=== PATIENT | female | born 1985 ===

== ENCOUNTER 2019-11-07 20:42 | Inpatient (IN) | payer MEDICAID, OTHER ==
[2019-11-07] MEDS ORDERED: TERBUTALINE 1 MG/1 ML INJ IVP PRN (20:55)
[2019-11-07] MEDS ORDERED: BUTORPHANOL 2 MG/1 ML INJ IV PRN (20:55)
[2019-11-07] MEDS ORDERED: TERBUTALINE 1 MG/1 ML INJ SUB-Q PRN (20:55)
[2019-11-07] MEDS ORDERED: fentaNYL 100 MCG/2 ML INJ IV PRN (20:55)
[2019-11-07] MEDS ORDERED: ONDANSETRON 4 MG/2 ML INJ IV PRN (20:55)
[2019-11-07] MEDS ORDERED: MINERAL OIL 30 ML ORAL LIQD PO PRN (20:55)
[2019-11-07] MEDS ORDERED: AMPICILLIN/NS 2 GM/100 ML 2 GM/100 ML BAG IV ONE (20:55)
[2019-11-07] MEDS ORDERED: ePHEDrine SULFATE 50 MG/1 ML INJ IV PRN (20:55)
[2019-11-07] MEDS ORDERED: OXYTOCIN 20 UNIT/1000ML DRIP 20 UNITS/1,000 ML BAG IV SCH (21:00)
--- NOTE | 2019-11-07 21:04 | History and Physical Report ---
History of Present Illness Date of examination: 11/07/19 Date of admission: 11/07/19 20:42 Chief complaint: IOL secondary to post-date History of present illness: 34 yo, @ 41.1 weeks, initiated care with [facility] at 7.3 wks gestation. Her has been complicated by positive GBS status. She reports to [facility] for IOL secondary to post-date . She reports +FM. Denies any LOF or VB. Labs: O+, antibody negative; PAP normal; rubella immune; VDRL non-reactive; HBsAg negative; HIV negative; platelets 332k; GC/Chlamydia negative; MSAFP/Multiple markers negative; 1hr gtt - 133; GBS positive. Past History Past Medical History: no pertinent history Past Surgical History: no surgical history Family/Genetic History: hypertension (mother) Social history: , lives with family, full code. denies: smoking, alcohol abuse, prescription drug abuse, IV drug use - Obstetrical History Expected Date of Delivery: 10/30/19 Actual Gestation: 41 Week(s) 1 Day(s) : 2 Para: 1 Hx # Term Pregnancies: 1 Number of Pregnancies: 0 Spontaneous Abortions: 0 Induced : 0 Number of Living Children: 1 #1 Infant Gender: Male year: 2[age][birth year] Birthweight: 3.75 kg Method of Delivery: Vaginal Complications: none Medications and Allergies Allergies Allergy/AdvReac Type Severity Reaction Status Date / Time No Known Allergies Allergy Verified 11/07/19 21:10 Active Meds: Active Medications Butorphanol Tartrate (Stadol) 2 mg IV Q2H PRN PRN Reason: Pain , Severe (7-10) Ephedrine Sulfate (Ephedrine Sulfate) 10 mg IV Q2M PRN PRN Reason: Hypotension Fentanyl (Sublimaze) 100 mcg IV Q2H PRN PRN Reason: Pain,Severe (7-10) LABOR PAIN Oxytocin/Sodium Chloride (Pitocin/Ns 20 Unit/1000ml Drip) 20 units in 1,000 mls @ 125 mls/hr IV DIRECT NANDO Lactated Ringer's (Lactated Ringers) 1,000 mls @ 125 mls/hr IV DIRECT NANDO Ampicillin Sodium (Ampicillin/Ns 2 Gm/100 Ml) 2 gm in 100 mls @ 100 mls/hr IV ONCE ONE; Protocol Stop: 11/07/19 21:54 Ampicillin Sodium (Ampicillin/Ns 1 Gm/50 Ml) 1 gm in 50 mls @ 100 mls/hr IV Q4HR NANDO; Protocol Mineral Oil (Mineral Oil) 30 ml PO QHS PRN PRN Reason: Constipation Ondansetron HCl (Zofran) 4 mg IV Q8H PRN PRN Reason: Nausea And Vomiting Terbutaline Sulfate (Brethine) 0.25 mg SUB-Q ONCE PRN PRN Reason: Hyperstimulation/Hypertonicity Terbutaline Sulfate (Brethine) 0.25 mg IVP ONCE PRN PRN Reason: Hyperstimulation/Hypertonicity Review of Systems All systems: negative - Physical Exam Breasts: Positive: normal Cardiovascular: Regular rate Lungs: Positive: Normal air movement Abdomen: Positive: other (gravid) Genitourinary (Female): Positive: normal external genitalia, normal perenium Vagina: Positive: normal moisture Uterus: Positive: enlarged (S=D) Anus/Rectum: Positive: normal perianal skin Extremities: Positive: normal Deep Tendon Reflex Grade: Normal +2 - Obstetrical FHR: category 1 Uterine Contraction Monitor Mode: External Cervical Dilatation: 1 (vertex) Cervical Effacement Percentage: 50 station: -4 Uterine Contraction Pattern: Absent Uterine Tone Measurement Phase: Resting Results All other labs normal. Assessment and Plan - Patient Problems (1) Encounter for induction of labor Current Visit: Yes Status: Acute Plan to address problem: Admit to L & D Labor induction with Cervidil x 12hrs as tolerated Pain meds as desired Anticipate (2) Positive GBS test Current Visit: Yes Status: Acute Plan to address problem: Initiate GBS prophylaxis per protocol
[2019-11-07] MEDS ORDERED: DINOPROSTONE 10 MG VAG SUPP VG ONE (21:26)
[2019-11-07 21:52] LABS: Hematocrit 38.3 % (30.3-42.9); Hemoglobin 12.8 gm/dl (10.1-14.3); Mean Corpuscular HGB Conc 34 % (30-34); Mean Corpuscular Volume 85 fl (79-97); Platelet Count 247 K/mm3 (140-440); Red Blood Count 4.49 M/mm3 (3.65-5.03); Red Cell Distribution Width 14.2 % (13.2-15.2)
[2019-11-07] MEDS: LACTATED RINGERS 1,000 ML IV SCH (22:43)
[2019-11-08] MEDS: LACTATED RINGERS 1,000 ML IV SCH ×2 (00:40→09:23)
[2019-11-08] MEDS: AMPICILLIN/NS 1 GM/50 ML 1 GM/50 ML BAG IV SCH ×4 (02:30→17:06)
--- NOTE | 2019-11-08 10:36 | Progress Note ---
Assessment and Plan A: IUP @ 41 2/7 Weeks Category I Tracing GBS Positive P: Remove Cervidil Cook's Cervical Ripening Balloon Placed Start Pitocin Augmentation Continue GBS Prophylaxis IV Pain Control Subjective - Subjective Date of service: 11/08/19 Patient reports: movement normal, contractions Objective - Vital Signs Vital Signs: Vital Signs - 12hr 11/07/19 11/07/19 11/07/19 22:46 23:12 23:17 Temperature Pulse Rate 87 72 72 Respiratory 18 Rate Blood Pressure 118/67 118/55 Blood Pressure 118/55 [Left] 11/07/19 11/08/19 11/08/19 23:47 00:16 00:41 Temperature 98.3 F Pulse Rate 71 84 78 Respiratory 18 Rate Blood Pressure 113/61 118/55 Blood Pressure 117/59 [Left] 11/08/19 11/08/19 11/08/19 00:47 01:17 01:47 Temperature Pulse Rate 78 81 65 Respiratory Rate Blood Pressure 117/59 119/68 101/56 Blood Pressure [Left] 11/08/19 11/08/19 11/08/19 02:17 02:47 02:54 Temperature Pulse Rate 88 77 77 Respiratory 18 Rate Blood Pressure 114/65 108/62 Blood Pressure 108/62 [Left] 11/08/19 11/08/19 11/08/19 03:17 03:37 03:46 Temperature Pulse Rate 74 74 74 Respiratory 18 Rate Blood Pressure 113/59 94/53 Blood Pressure 113/59 [Left] 11/08/19 11/08/19 11/08/19 04:16 04:47 05:18 Temperature Pulse Rate 77 84 79 Respiratory Rate Blood Pressure 90/54 95/50 105/52 Blood Pressure [Left] 11/08/19 11/08/19 11/08/19 05:47 06:16 06:35 Temperature Pulse Rate 71 69 84 Respiratory Rate Blood Pressure 91/52 115/56 115/63 Blood Pressure [Left] 11/08/19 11/08/19 11/08/19 06:36 06:48 07:17 Temperature 97.8 F Pulse Rate 84 78 77 Respiratory 18 Rate Blood Pressure 124/70 108/53 Blood Pressure 115/63 [Left] 11/08/19 11/08/19 11/08/19 07:48 08:00 08:16 Temperature 97.8 F Pulse Rate 69 92 H Respiratory Rate Blood Pressure 99/53 107/57 Blood Pressure [Left] 11/08/19 11/08/19 11/08/19 08:47 09:28 10:29 Temperature Pulse Rate 72 73 93 H Respiratory Rate Blood Pressure 113/58 95/52 135/64 Blood Pressure [Left] - Exam Breasts: normal Cardiovascular: Regular rate Lungs: Clear to auscultation, Normal air movement Abdomen: Present: normal appearance, soft, normal bowel sounds Uterus: Present: normal, firm, fundal height above umbilicus FHR: category 1 Uterine Contraction Monitor Mode: External Cervical Dilatation: 2 (Vtx; Intact) Cervical Effacement Percentage: 50 station: -3 Uterine Contraction Frequency (min): 3 Uterine Contraction Pattern: Regular Uterine Tone Measurement Phase: Resting Uterine Contraction Intensity: Moderate Extremities: normal - Labs Labs: Laboratory Results - last 24 hr 11/07/19 11/07/19 21:28 21:31 WBC 8.8 RBC 4.49 Hgb 12.8 Hct 38.3 MCV 85 MCH 29 MCHC 34 RDW 14.2 Plt Count 247 Blood Type O POSITIVE Antibody Screen Negative
[2019-11-08] MEDS ORDERED: OXYTOCIN DRIP 30 UNITS/500 ML BAG IV SCH (11:00)
--- NOTE | 2019-11-08 15:28 | Event Note ---
Date: 11/08/19 RN asked me to confirm presentation and her vaginal exam. Vtx on bedside U/S. /-3 on exam with SROM clear during the exam. Cont expectant care.
[2019-11-08] MEDS ORDERED: NALOXONE 2 MG/2 ML INJ IV PRN (15:54)
[2019-11-08] MEDS ORDERED: ePHEDrine SULFATE 50 MG/1 ML INJ IV PRN (15:54)
[2019-11-08] MEDS ORDERED: fentaNYL-BUPIV 2 MCG/ML-0.125% 200 MCG/100 ML BAG EPIDURAL SCH (16:00)
[2019-11-08] MEDS ORDERED: DEXMEDETOMIDINE 200 MCG/2 ML VIAL IV ONE (17:32)
[2019-11-08] MEDS ORDERED: BUPIVACAINE/PF (0.25%) 2.5 MG/ML 10 ML VIAL INFILTRATI ONE (17:33)
[2019-11-08] MEDS ORDERED: WITCH HAZEL/ GLYCERIN PAD TP PRN (21:30)
[2019-11-08] MEDS ORDERED: MAGNESIUM HYDROXIDE (MOM) ORAL LIQD UDC PO PRN (21:30)
[2019-11-08] MEDS ORDERED: LANOLIN/ZINC/DIMETHICONE (LANSINOH) 7 GM TP PRN (21:30)
[2019-11-08] MEDS ORDERED: diphenhydrAMINE 25 MG CAP PO PRN (21:30)
[2019-11-08] MEDS ORDERED: HYDROcodone/ACETAMINOPHEN 5-325 MG TAB PO PRN (21:30)
--- NOTE | 2019-11-08 21:30 | Procedure Note ---
OB Delivery Note - Delivery Date of Delivery: 11/08/19 (2051) Surgeon: ZAHEER BELLA Estimated blood loss: 200cc - Vaginal Delivery presentation: vertex Delivery position: OA Intrapartum events: meconium, prolonged 2nd stage>2.5hr Delivery induction: cervidil Delivery augmentation: rupture of membranes, pitocin Delivery monitor: external FHT, external uterine Route of delivery: Delivery placenta: spontaneous Delivery cord: 3 umbilical vessels Episiotomy: none Delivery laceration: 1st degree Delivery repair: vicryl Anesthesia: epidural Delivery comments: of a live 9'8 male infant over a 1st perineal laceration under epidural anesthesia with Apgars of 8 and 9 at 2051 on 11/08/2019. Cord double clamped and cut by AFTAB Bella, not stimulated and handed directly to awaiting NICU/RESP team due to meconium stained fluids. Spontaneous delivery of placenta complete and intact with Sheikh side presenting at 2056. Fundus is firm and midline located 4 below the U. Lochia is scant. Perineal laceration repaired with 2-[address]-1. Cord blood collected; Placenta discarded. GBS Prophylaxias x 2. - Infant A at 1 minute: 8 at 5 minutes: 9 Infant Gender: Male (9'8)
[2019-11-09] MEDS: IBUPROFEN 600 MG TAB PO SCH ×3 (05:59→23:43)
[2019-11-09] MEDS ORDERED: DIPHtheria,PERTUSSIS(ACELL),TETANUS VACCINE/PF 0.5 ML VIAL IM ONE (06:00)
[2019-11-09 09:24] LABS: Hematocrit 32.6 % (30.3-42.9); Hemoglobin 11.1 gm/dl (10.1-14.3)
[2019-11-09] MEDS: PRENATAL VIT27-FE FUMARATE-FOLIC ACID VIT TAB PO SCH (09:44)
--- NOTE | 2019-11-09 11:02 | Progress Note ---
Assessment and Plan - Patient Problems (1) Status post normal vaginal delivery Current Visit: Yes Status: Acute Plan to address problem: PPD 1 - stable Continue routine orders Discharge to home 11/09/19 Follow-up at [facility] as needed or in 6 weeks for exam (2) Single live Current Visit: Yes Status: Acute Subjective - Subjective Date of service: 11/09/19 Principal diagnosis: PPD #1; s/p Interval history: see [facility] - H&P, OB Progress Note, Event Note and OB Delivery Procedure Note Patient reports: appetite normal, voiding normally, pain well controlled, ambulating normally, no dizzy ambulation [place]: doing well Objective - Vital Signs Latest vital signs: Vital Signs Temp Pulse Resp BP BP Pulse Ox 11/09/19 08:12 98.0 F 81 20 107/52 96 11/09/19 05:59 20 11/09/19 05:00 98.0 F 19 114/62 11/09/19 00:26 98.4 F 96 H 20 112/61 97 11/08/19 23:29 110 H 114/59 11/08/19 23:14 103 H 107/55 11/08/19 22:59 89 109/63 11/08/19 22:44 96 H 110/53 11/08/19 22:29 94 H 111/56 11/08/19 22:15 95 H 147/58 11/08/19 21:44 89 125/60 11/08/19 21:29 97 H 104/57 11/08/19 21:14 100 H 108/58 11/08/19 19:11 142 H 184/70 11/08/19 19:03 94 H 99 11/08/19 19:02 102 H 86 11/08/19 18:58 92 H 99 11/08/19 18:55 91 H 90/53 11/08/19 18:53 67 98 11/08/19 18:48 89 98 11/08/19 18:43 74 97 11/08/19 18:40 85 96/51 11/08/19 18:38 83 98 11/08/19 18:33 79 98 11/08/19 18:28 98 H 97 11/08/19 18:26 98 H 93/53 11/08/19 18:23 77 98 05/13/20 18:18 80 98 11/08/19 18:13 72 99 11/08/19 18:12 77 94 11/08/19 18:11 64 112/57 11/08/19 18:08 79 94 11/08/19 18:06 79 93 11/08/19 18:03 80 90 11/08/19 18:00 98.3 F 11/08/19 17:58 62 93 11/08/19 17:56 57 L 94/48 11/08/19 17:55 60 94 11/08/19 17:53 58 L 95 11/08/19 17:48 57 L 98 11/08/19 17:46 66 90 11/08/19 17:43 66 100 11/08/19 17:41 60 108/55 11/08/19 17:38 64 100 11/08/19 17:32 60 100 11/08/19 17:27 66 100 11/08/19 17:26 80 114/56 11/08/19 17:22 69 99 11/08/19 17:17 60 97 11/08/19 17:12 75 99 11/08/19 17:11 64 111/59 11/08/19 17:09 107 H 92 11/08/19 17:07 94 H 97 11/08/19 17:04 92 H 144/112 11/08/19 17:02 71 96 11/08/19 17:01 83 132/65 11/08/19 16:58 73 124/65 93 11/08/19 16:57 81 93 11/08/19 16:55 64 131/64 11/08/19 16:52 78 126/64 98 11/08/19 16:51 71 94 11/08/19 16:49 96 H 145/69 11/08/19 16:47 65 98 11/08/19 16:46 97 H 144/87 11/08/19 16:43 94 H 144/75 11/08/19 16:42 97 H 97 11/08/19 16:40 81 136/67 05 16:37 72 131/68 97 11/08/19 16:34 86 133/69 05 16:32 68 98 11/08/19 16:31 89 129/69 11/08/19 16:28 80 128/64 05/13/20 16:27 80 98 05 16:25 65 128/58 05 16:22 93 H 124/68 05 16:21 64 94 05 16:20 72 97 05 16:19 57 L 112/58 05 16:16 92 H 129/63 05 16:15 87 97 05 16:13 88 126/63 05 16:10 67 124/63 93 05 16:07 69 113/58 05 16:06 74 94 05 16:05 63 95 05 16:04 64 109/56 05 16:01 64 119/58 05 16:00 98.1 F 69 96 05 15:59 79 141/66 05 15:55 66 110/58 96 05 15:52 69 114/58 05 15:50 82 98 05 15:49 69 116/58 05 15:46 70 119/58 05 15:45 75 98 05 15:43 60 113/57 05 15:40 88 113/56 97 05 15:37 86 113/59 05 15:35 69 98 05 15:34 76 117/58 0520 15:31 74 118/57 05 15:30 69 99 05 15:28 85 124/69 05 15:25 95 H 116/58 96 0520 15:22 76 118/63 0520 15:20 79 97 05/20 15:19 78 116/59 0520 15:16 82 122/61 87 0520 15:13 83 115/59 97 0520 15:11 77 94 0520 15:10 71 115/59 0520 15:08 77 97 05 15:07 78 101/51 05 15:04 67 109/54 94 05 15:03 80 97 05 15:01 75 120/68 11/08/19 14:59 77 116/65 11/08/19 14:58 86 107/66 98 11/08/19 14:53 98 H 99 11/08/19 14:27 83 121/67 11/08/19 14:00 98.1 F 11/08/19 13:28 64 121/60 11/08/19 12:27 80 120/65 11/08/19 12:12 97.3 F L 11/08/19 11:27 74 111/62 Intake and Output 11/08/19 11/09/19 11/09/19 23:59 07:59 15:59 Intake Total 40.4 680 120 Output Total 600 1200 600 Balance -559.6 -520 -480 Intake: IV 40.4 PITOCin/NS 30 UNIT/500ML 40.4 30 units In 500 ml @ 2 mls/hr IV TITR NANDO Rx#: [id number] Oral 680 120 Output: Urine 600 1200 600 Indwelling Catheter 600 Void 1200 600 Other: Total, Intake Amount 240 120 Total, Output Amount 600 600 600 # Voids Void 1 1 # Bowel Movements 0 Estimated Blood Loss 200 - Exam Cardiovascular: Present: Regular rate Lungs: Present: Clear to auscultation Abdomen: Present: normal appearance, soft Vulva: both: laceration/episiotomy (well approximated) Uterus: Present: normal, firm, fundal height at umbilicus Extremities: Present: normal Comments: scant lochia
--- NOTE | 2019-11-09 11:05 | Discharge Summary ---
Providers - Providers Date of Admission: 11/07/19 20:42 Date of discharge: 11/10/19 Attending physician: MARIAELENA HALL MD Primary care physician: MARIAELENA HALL MD Hospitalization Reason for admission: induction of labor, IUP at term Delivery: Episiotomy: none Laceration: 1st degree Other procedures: none complications: none Discharge diagnosis: IUP at term delivered baby: male Hospital course: Uncomplicated Condition at discharge: Stable Disposition: DC-01 TO HOME OR SELFCARE - Discharge Diagnoses (1) Status post normal vaginal delivery Status: Acute (2) Single live Status: Acute Plan - Provider Discharge Summary Activity: routine, no sex for 6 weeks, no heavy lifting 4 weeks, no strenuous exercise Diet: routine Instructions: routine Additional instructions: [] Smoking cessation referral if applicable(refer to patient education folder for contact #) [] Refer to [facility]'s [facility] Booklet Call your doctor immediately for: * Fever > 100.5 * Heavy vaginal bleeding ( >1 pad per hour) * Severe persistent headache * Shortness of breath * Reddened, hot, painful area to leg or breast * Drainage or odor from incision. * Keep incision clean and dry at all times and follow doctor's instructions regarding bathing/showering - Follow up plan Follow up: MARIAELENA HALL MD [Primary Care Provider] - 6 Weeks (Follow-up at [facility] as needed or in 6 weeks for exam)
[2019-11-09] MEDS ORDERED: FLU VACC QUAD 2019-20 (3 YR UP)/PF 60 MCG/0.5 ML SYRINGE IM ONE (12:00)
[2019-11-10] MEDS: IBUPROFEN 600 MG TAB PO SCH ×4 (06:00→16:22)
[2019-11-10] MEDS: PRENATAL VIT27-FE FUMARATE-FOLIC ACID VIT TAB PO SCH (09:44)
[2019-11-10 16:28] VITALS: BP 113/72
== END 2019-11-10 15:08 | disposition home or self-care (01) | DRG 807 ==
LOC: LD 20:42 → OB 11-09 01:37
PROVIDERS: ADMIT Obstetrics & Gynecology; ATTEND Obstetrics & Gynecology
PROC: 10E0XZZ Delivery of Products of Conception, External Approach (ICD-10-PCS; principal; 2019-11-08)
PROC: 0HQ9XZZ Repair Perineum Skin, External Approach (ICD-10-PCS; 2019-11-08)
PROC: 3E0P7VZ Introduction of Hormone into Female Reproductive, Via Natural or Artificial Opening (ICD-10-PCS; 2019-11-08)
PROC: 3E0R3BZ Introduction of Anesthetic Agent into Spinal Canal, Percutaneous Approach (ICD-10-PCS; 2019-11-08)
PROC: 00HU33Z Insertion of Infusion Device into Spinal Canal, Percutaneous Approach (ICD-10-PCS; 2019-11-08)
PROC: 3E0234Z Introduction of Serum, Toxoid and Vaccine into Muscle, Percutaneous Approach (ICD-10-PCS; 2019-11-09)
DX: O77.0 Labor and delivery complicated by meconium in amniotic fluid (principal); Z37.0 Single live birth; O70.0 First degree perineal laceration during delivery; O99.824 Streptococcus B carrier state complicating childbirth; O48.0 Post-term pregnancy; Z82.49 Family history of ischemic heart disease and other diseases of the circulatory system; Z3A.41 41 weeks gestation of pregnancy
CPT/HCPCS: 36415; 59200; 85014; 85018; 85027; 86850; 86900; 86901; 90686; 90715; G0378; J0290; J2405; J2590; J3010; J3490; J7120